=== PATIENT | male | born 1935 | race Caucasian/White ===

== ENCOUNTER 2016-10-18 23:44 | Inpatient (IN) | payer MEDICARE, MEDICAID, OTHER ==
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
[2016-10-19 00:15] LABS: % BASOPHILS 0.8 % (0.0-2.0); % EOSINOPHILS 3.2 % (0.0-5.0); % LYMPHOCYTES 26.4 % (20.0-50.0); % MONOCYTES 11.9 % (2.0-10.0); % NEUTROPHILS 57.7 % (40.0-80.0); HEMATOCRIT 33.6 % (39.0-49.0); HEMOGLOBIN 11.8 gm/dL (12.6-17.4); MEAN CELL VOLUME 81.8 fl (80-99); MEAN CORPUSCULAR HEMOGLOBIN 28.6 pg (27.0-31.0); MEAN PLATELET VOLUME 9.1 fl; NEUTROPHILE ABSOLUTE 3.1 Th/cmm (1.8-8.0); PLATELET COUNT 159 Th/cmm (150-400); RED BLOOD COUNT 4.11 Mil/cmm (3.80-5.80); RED CELL DISTRIBUTION WIDTH 13.9 % (11.5-20.0); WHITE BLOOD COUNT 5.5 Th/cmm (4.8-10.8)
[2016-10-19 00:30] LABS: ANION GAP 8.8 (7.0-16.0); BUN - UREA NITROGEN 16 mg/dL (7-25); CALCIUM SERUM 9.7 mg/dL (8.6-10.3); CARBON DIOXIDE 28.9 mEq/L (21.0-31.0); CHLORIDE 102 mEq/L (98-107); CHOLESTEROL 162 mg/dL (<200); GLUCOSE 127 mg/dL (70-105); SODIUM SERUM 137 mEq/L (136-145); TRIGLYCERIDES 190 mg/dL (<150)
[2016-10-19 00:30] LABS: URINE BACTERIA OCCASIONAL /hpf (NONE SEEN); URINE BILIRUBIN NEGATIVE (NEGATIVE); URINE BLOOD NEGATIVE (NEGATIVE); URINE COLOR YELLOW; URINE EPITHELIAL CELLS OCCASIONAL /lpf (FEW); URINE GLUCOSE (UA) NEGATIVE (NEGATIVE); URINE KETONE NEGATIVE (NEGATIVE); URINE PROTEIN NEGATIVE (NEGATIVE); URINE RBC 0-2 /hpf (0-5); URINE UROBILINOGEN 0.2 E.U./dL (0.2 - 1.0); URINE WBC 0-2 /hpf (0-5)
[2016-10-19 00:39] LABS: POTASSIUM SERUM 2.7 mEq/L (3.5-5.1)
[2016-10-19] MEDS ORDERED: Potassium Chloride 20 mEq ER Tab PO ONE ×2 (00:42→00:52)
[2016-10-19] MEDS ORDERED: Magnesium Hydroxide (MOM) 30 mL UDC PO PRN (02:26)
[2016-10-19] MEDS ORDERED: Maalox 30 mL Cup PO PRN (02:26)
[2016-10-19] MEDS ORDERED: Guaifenesin DM 10 ML UDC PO PRN (07:31)
[2016-10-19] MEDS ORDERED: MAGNESIUM 250 MG PO SCH (09:00)
[2016-10-19] MEDS ORDERED: Potassium Chloride 10 mEq ER Tab PO SCH (09:00)
[2016-10-19] MEDS ORDERED: FENOFIBRATE NANOCRYSTALLIZED 48 MG PO SCH (09:00)
--- NOTE | 2016-10-19 09:23 | History & Physical ---
CHIEF COMPLAINT: Psychosis. HISTORY OF PRESENT ILLNESS: This is an 81-year-old male who was brought in by ambulance to [facility] for increased behavioral changes, increased agitation and aggressive behavior towards staff. The patient was seen in the ER and has initial labs that showed normal white count of 5.5, hemoglobin 11.8, hematocrit 33.6, platelets 159. Sodium was normal at 137, potassium was low at 2.7. The patient was given potassium supplements while in the ER. Chloride was 102, bicarbonate ____, BUN 16, creatinine 1.0 and glucose 127. PAST MEDICAL HISTORY: Dementia, hypertension, dyslipidemia and prostate disease. SOCIAL HISTORY: Denies any tobacco use or alcohol use. Lives at a intermediate facility. FAMILY HISTORY: Noncontributory. ALLERGIES: SULFA ONLY. REVIEW OF SYSTEMS: Unable to obtain due to patient's current condition. LABORATORY DATA: See HPI. PHYSICAL EXAMINATION: VITAL SIGNS: Temperature 98.0, pulse 58, respirations 20, blood pressure 109/56. GENERAL: This is a well-developed, well-nourished 81-year-old male, appears stated age. HEENT: Normocephalic, atraumatic. Pupils equal, round, reactive to light and accommodation. Extraocular muscles intact. Ears: TMs intact. NECK: Supple. Good range of motion. No thyromegaly. No lymphadenopathy. HEART: Regular rate and rhythm. No murmurs, rubs or clicks. LUNGS: Clear to auscultation. No rales, rhonchi or wheezing. ABDOMEN: Soft, nontender, nondistended. Bowel sounds are active in all 4 quadrants. No rebound tenderness, rigidity or guarding. EXTREMITIES: No clubbing, cyanosis or edema. Pedal pulses are intact. ASSESSMENT: 1. Psychosis. 2. Hypokalemia. We will repeat a potassium level today. 3. Hypertension. 4. Dyslipidemia. 5. Prostate disease. 6. Dementia. PLAN: We will continue current orders. The patient to be admitted to [facility] for further evaluation and treatment. JOB# [id number]
[2016-10-19] MEDS: Multivitamin Tab PO SCH (09:27)
[2016-10-19 11:01] LABS: ANION GAP 11.2 (7.0-16.0); BUN - UREA NITROGEN 15 mg/dL (7-25); BUN/CREATININE RATIO 13.6; CALCIUM SERUM 9.8 mg/dL (8.6-10.3); CARBON DIOXIDE 30.6 mEq/L (21.0-31.0); CHLORIDE 100 mEq/L (98-107); CREATININE - SERUM 1.1 mg/dL (0.7-1.3); GLUCOSE 163 mg/dL (70-105); SODIUM SERUM 139 mEq/L (136-145)
[2016-10-19 11:07] LABS: POTASSIUM SERUM 2.8 mEq/L (3.5-5.1)
--- NOTE | 2016-10-19 21:44 | Psychosocial Evaluation ---
JUSTIFICATION FOR HOSPITALIZATION: Agitation and aggression towards staff. CHIEF COMPLAINT: "I'm here for my stomach." HISTORY OF PRESENT ILLNESS: This is an 81-year-old male with history of dementia noted to have worsening, constant, eyekutzc-bt-ovkioo agitation, aggressive towards staff at his nursing facility. The patient is denying overt depression, mildly anxious, alert and oriented to name. He knows he is in the hospital. He has no idea why he is in the hospital. He knows the year is 2016. He knows the month is October. He is not sure about the day of the week. PAST PSYCHIATRIC HISTORY: Dementia. PAST MEDICAL HISTORY: Hypertension and dyslipidemia. SOCIAL HISTORY: The patient is currently . He has two sons. No alcohol, no drugs, and no tobacco. The patient states he lives in a retirement facility. MEDICATIONS: Reviewed. MENTAL STATUS EXAMINATION: Appearance stated age. Fair eye contact. Speech was within normal limits. Mood is " okay." Affect flat. Thought processes were somewhat confused, disoriented as to why he is in the hospital and where he is. No overt SI or HI. No overt psychotic symptoms, but he has been aggressive. Insight and judgment diminished x 2. Decreased concentration. PROVISIONAL DIAGNOSES: Dementia with behavioral disturbances, psychosis, not otherwise specified. MEDICAL DIAGNOSIS: As noted. ESTIMATED LENGTH OF STAY: 5-10 days. PATIENT'S STRENGTHS: The patient is amenable to care. WEAKNESSES: Unknown social support. ASSESSMENT: The patient is requiring inpatient hospitalization. Unable to care for his basic needs, and nursing facility is unable to care for him because he was agitated and aggressive. PLAN: We will continue to monitor and titrate medications as tolerated. TREATMENT PLAN: Includes group as well as milieu therapy. CONDITIONS FOR DISCHARGE: Improved mood, improved affect, cessation of any SI or HI, better control of his aggression and agitation. JOB# [id number]
[2016-10-20 08:49] LABS: ANION GAP 8.3 (7.0-16.0); BUN - UREA NITROGEN 13 mg/dL (7-25); CALCIUM SERUM 9.7 mg/dL (8.6-10.3); CARBON DIOXIDE 31.5 mEq/L (21.0-31.0); CHLORIDE 102 mEq/L (98-107); GLUCOSE 134 mg/dL (70-105); SODIUM SERUM 139 mEq/L (136-145)
[2016-10-20 09:09] LABS: POTASSIUM SERUM 2.8 mEq/L (3.5-5.1)
[2016-10-20] MEDS: Fenofibrate, Micronized 134 mg Cap PO SCH (09:38)
[2016-10-20] MEDS: Multivitamin Tab PO SCH (09:41)
[2016-10-20] MEDS: Potassium Chloride 20 mEq ER Tab PO SCH (09:50)
[2016-10-20] MEDS ORDERED: Haloperidol Lactate 5 mg/mL 1mL Vial ONE (11:57)
[2016-10-20] MEDS ORDERED: Haloperidol Lactate 5 mg/mL 1mL Vial IM ONE (12:07)
[2016-10-20 12:15] LABS: HEP B CORE IGM Negative (Negative); HEP C ANTIBODY <0.1 s/co ratio (0.0-0.9)
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
[2016-10-21] MEDS: Potassium Chloride 20 mEq ER Tab PO SCH (10:13)
[2016-10-21] MEDS: Fenofibrate, Micronized 134 mg Cap PO SCH (10:16)
[2016-10-21] MEDS: Multivitamin Tab PO SCH (10:17)
--- NOTE | 2016-10-22 02:54 | Progress Notes ---
SUBJECTIVE: The patient was seen, chart reviewed, and discussed with staff. The patient is still symptomatic, still aggressive. The patient had an episode of aggression whereby yesterday he required some emergency medications. Currently on Depakote 250 at bedtime and 250 in the morning with level that is approximately 50. I also started him on low-dose Risperdal. The patient is confused, disoriented, and has no idea what is going on. Unable to participate in self-care planning discussion. He is too symptomatic to care himself. Concerns for ability to provide for basic food, clothing, and long term. ASSESSMENT AND PLAN: The patient is still impulsive, unpredictable, aggressive, and concerns for safety persist. PLAN: Continue medications, given recent dose escalation, monitor closely for any overt side effects. JOB# [id number]
[2016-10-22] MEDS: Fenofibrate, Micronized 134 mg Cap PO SCH (09:45)
[2016-10-22] MEDS: Potassium Chloride 20 mEq ER Tab PO SCH (09:48)
[2016-10-22] MEDS: Multivitamin Tab PO SCH (09:48)
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
[2016-10-23] MEDS: Potassium Chloride 20 mEq ER Tab PO SCH (08:52)
[2016-10-23] MEDS: Multivitamin Tab PO SCH (08:54)
[2016-10-23] MEDS: Fenofibrate, Micronized 134 mg Cap PO SCH (08:54)
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
[2016-10-24] MEDS: Multivitamin Tab PO SCH (08:49)
[2016-10-24] MEDS: Potassium Chloride 20 mEq ER Tab PO SCH (08:51)
[2016-10-24] MEDS: Fenofibrate, Micronized 134 mg Cap PO SCH (08:51)
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
[2016-10-25] MEDS: Fenofibrate, Micronized 134 mg Cap PO SCH (08:41)
[2016-10-25] MEDS: Multivitamin Tab PO SCH (08:47)
[2016-10-25] MEDS: Potassium Chloride 20 mEq ER Tab PO SCH (08:49)
--- NOTE | 2016-10-25 23:42 | Progress Notes ---
SUBJECTIVE: The patient was seen, chart reviewed, and discussed with staff. The patient is still impulsive, unpredictable, confused, disoriented, and seems to be with some improvement. He is more redirectable, less agitation, but staff still fears, he may lash out given his unpredictability. Sleeping fairly well and eating well. Eating with prompting. ADLs with prompting. ASSESSMENT: The patient remains symptomatic, not safe for a lower level of care, still impulsive, unpredictable, confused, and disoriented. PLAN: Continue to monitor and titrate medications. JOB# [id number]
[2016-10-26] MEDS: Fenofibrate, Micronized 134 mg Cap PO SCH (08:12)
[2016-10-26] MEDS: Potassium Chloride 20 mEq ER Tab PO SCH (08:17)
[2016-10-26] MEDS: Multivitamin Tab PO SCH (08:17)
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
[2016-10-27] MEDS: Potassium Chloride 20 mEq ER Tab PO SCH (08:53)
[2016-10-27] MEDS: Fenofibrate, Micronized 134 mg Cap PO SCH (09:04)
[2016-10-27] MEDS: Multivitamin Tab PO SCH (09:05)
--- NOTE | 2016-10-28 04:27 | Progress Notes ---
SUBJECTIVE: The patient seen, chart reviewed, discussed with staff. The patient remains confused, disoriented, still with some outbursts, still aggressive at times, seems to be more redirectable, a little bit calmer, tolerant to medications, no side effects noted, needing a lot of prompting for eating and prompting for ADLs, not safe for a lower level of care. ASSESSMENT: The patient remains symptomatic, still with outbursts, still aggressive and impulsive. PLAN: Continue medications given recent dose escalation, continue to monitor for any overt side effects. JOB# [id number]
[2016-10-28] MEDS: Potassium Chloride 20 mEq ER Tab PO SCH (08:47)
[2016-10-28] MEDS: Fenofibrate, Micronized 134 mg Cap PO SCH (08:51)
[2016-10-28] MEDS: Multivitamin Tab PO SCH (08:53)
[2016-10-29] MEDS: Potassium Chloride 20 mEq ER Tab PO SCH (08:30)
[2016-10-29] MEDS: Fenofibrate, Micronized 134 mg Cap PO SCH (08:32)
[2016-10-29] MEDS: Multivitamin Tab PO SCH (08:36)
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
== END 2016-10-29 16:45 | DRG 884 ==
LOC: ER 23:44 → GERO 10-19 00:50
PROVIDERS: ADMIT Psychiatry & Neurology Psychiatry; ATTEND Psychiatry & Neurology Psychiatry
DX: F03.91 Unspecified dementia, unspecified severity, with behavioral disturbance (principal); I10 Essential (primary) hypertension; E78.5 Hyperlipidemia, unspecified; E87.6 Hypokalemia; F29 Unspecified psychosis not due to a substance or known physiological condition; N40.0 Benign prostatic hyperplasia without lower urinary tract symptoms; Z88.2 Allergy status to sulfonamides; Z85.46 Personal history of malignant neoplasm of prostate
CPT/HCPCS: 36415-UA; 80048-TC; 80061-TC; 80074-90; 80164-TC; 81001-TC; 84443-TC; 85025-TC; 86592-TC; 93005; J1200; J1630; J2060; J9999; Z7610